=== PATIENT | male | born 1980 | race Caucasian/White ===

== ENCOUNTER 2019-02-05 08:21 | Emergency (ER) | payer SELFPAY ==
[~2019-02-05] VITALS: Ht 182.9 cm; Wt 104.3 kg
--- NOTE | 2019-02-05 08:37 | NUR ---
is at bedside doing his MSE.
[2019-02-05] MEDS ORDERED: TDAP DIPH,PERTUSS,TET VAC/PF 0.5 ML DISP.SYRIN IM ONE ×2 (08:45→08:52)
[2019-02-05] MEDS ORDERED: IBUPROFEN 800 MG TABLET PO ONE (08:45)
[2019-02-05] MEDS ORDERED: LIDOCAINE 1%-EPI 1:100,000 20 ML VIAL TP ONE (08:45)
[2019-02-05] MEDS ORDERED: LIDOCAINE 1%-EPI 1:100,000 20 ML VIAL ONE (08:51)
[2019-02-05] MEDS ORDERED: IBUPROFEN 800 MG TABLET ONE (08:51)
--- NOTE | 2019-02-05 10:09 | NUR ---
Patient discharged to home in stable conditon & slow steady gait. 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 Patient verbalizes understanding & compliance of instructions.
== END 2019-02-05 10:11 | disposition home or self-care (01) ==
LOC: ER 08:21
DX: S81.012A Laceration without foreign body, left knee, initial encounter (principal); S70.12XA Contusion of left thigh, initial encounter; W18.30XA Fall on same level, unspecified, initial encounter; Y93.89 Activity, other specified; Y92.89 Other specified places as the place of occurrence of the external cause; Y99.8 Other external cause status
CPT/HCPCS: 12002; 73564; 90471; 90715; 99283; J3490; A4217; A4663

== ENCOUNTER 2019-02-07 10:19 | Emergency (ER) | payer SELFPAY ==
[~2019-02-07] VITALS: Ht 182.9 cm; Wt 104.3 kg
--- NOTE | 2019-02-07 10:50 | NUR ---
Patient discharged to home in stable conditon. Written and verbal after care instructions given. Patient verbalizes understanding of instructions.PT WALKS IN STEADY GAIT.
== END 2019-02-07 11:03 | disposition home or self-care (01) ==
LOC: ER 10:19
DX: S81.012D Laceration without foreign body, left knee, subsequent encounter (principal); X58.XXXD Exposure to other specified factors, subsequent encounter
CPT/HCPCS: A4663

== ENCOUNTER 2019-02-11 07:53 | Emergency (ER) | payer SELFPAY ==
[~2019-02-11] VITALS: Ht 182.9 cm; Wt 104.3 kg
--- NOTE | 2019-02-11 08:04 | NUR ---
KARAN JEFFERS AT BEDSIDE FOR MSE.
--- NOTE | 2019-02-11 08:23 | NUR ---
5 SUTURES ON L KNEE WAS REMOVED BY ER MD. SMALL AMOUNT OF PUS DRAINAGE WAS VISIBLE UPON REMOVAL OF SUTURES. WOUND WAS INCOMPLETELY CLOSED. PER ER MD'S ORDER, WOUND WAS PARTIALLY CLOSED W/ USE OF STERI STRIPS. WOUND COVERED W/ 4X4 GAUZE.
--- NOTE | 2019-02-11 08:24 | NUR ---
Patient discharged to home in stable conditon. Written and verbal after care instructions given. Patient verbalizes understanding of instructions. ALL BELONGINGS W/ PT. PT SELF-AMBULATED W/O DIFFICULTY.
[2019-02-11 08:26] VITALS: BP 127/77
== END 2019-02-11 08:28 | disposition home or self-care (01) ==
LOC: ER 07:53
DX: S81.012D Laceration without foreign body, left knee, subsequent encounter (principal); L08.9 Local infection of the skin and subcutaneous tissue, unspecified; X58.XXXD Exposure to other specified factors, subsequent encounter
CPT/HCPCS: A4663

== ENCOUNTER 2019-02-13 07:33 | Emergency (ER) | payer SELFPAY ==
[~2019-02-13] VITALS: Ht 182.9 cm; Wt 104.3 kg
--- NOTE | 2019-02-13 08:02 | NUR ---
Dr Grant at the bedside for MSE.
--- NOTE | 2019-02-13 08:09 | NUR ---
Patient discharged to home in stable conditon. Written and verbal after care instructions given. Patient verbalizes understanding of instructions.
[2019-02-13 08:10] VITALS: BP 114/76
== END 2019-02-13 08:11 | disposition home or self-care (01) ==
LOC: ER 07:33
DX: S81.812D Laceration without foreign body, left lower leg, subsequent encounter (principal); W22.8XXD Striking against or struck by other objects, subsequent encounter
CPT/HCPCS: A4663